=== PATIENT | male | born 1990 | race African-American/Black ===

== ENCOUNTER 2023-05-24 13:37 | Emergency (ER) | payer SELFPAY | END 2023-05-24 16:47 | disposition home or self-care (01) | LOC: CSHERS 13:37 | DX: S93.402A Sprain of unspecified ligament of left ankle, initial encounter (principal); F17.290 Nicotine dependence, other tobacco product, uncomplicated; Z55.6 Problems related to health literacy; X50.1XXA Overexertion from prolonged static or awkward postures, initial encounter ==

== ENCOUNTER 2024-12-06 15:29 | Emergency (ER) | payer MEDICAID, OTHER ==
[2024-12-06] MEDS ORDERED: Ketorolac Tromethamine 30 MG (1 mL) VIAL ONE (16:32)
== END 2024-12-06 17:29 | disposition home or self-care (01) ==
LOC: CSHERS 15:29
DX: M25.511 Pain in right shoulder (principal); J02.9 Acute pharyngitis, unspecified; F17.290 Nicotine dependence, other tobacco product, uncomplicated
CPT/HCPCS: 87081; 87426; 87430; 96372; 99283; J1885